=== PATIENT | male | born 1955 | race Caucasian/White ===

== ENCOUNTER 2016-09-18 10:30 | Inpatient (IN) ==
[2016-09-18] MEDS ORDERED: CeFAZolin Pre 2,000 MG/100 ML 2,000 MG/100 ML BAG IVPB ONE (10:42)
[2016-09-18] MEDS ORDERED: Albuterol 2.5 MG/3 ML NEBULIZER IH ONE (10:42)
[2016-09-18] MEDS ORDERED: Ringers Solution, Lactated 1,000 ML IVC SCH ×2 (10:45→16:03)
--- NOTE | 2016-09-18 10:45 | Anesthesia Evaluation PreOp ---
Date of Encounter: 09/18/16 Time of Encounter: 10:43 - Past History Planned Operation: PLIF L5-S! Cardiac History: Denies any Significant Hx Pulmonary History: Smoker (56 years), Asthma, COPD SEO CONSULTANT History: Other (chronic back pain) Other Medical History: GERD Anesthesia History: No Prior Anesthetic Complications, Past Anesthesia Alcohol Use: none Drug use: none Medications and Allergies Buspirone HCl [Buspar] 10 mg PO TID 06/28/16 [History] Tizanidine HCl [Zanaflex] 4 mg PO Q8H PRN 06/28/16 [History] Albuterol Sulfate [Ventolin Hfa] 2 puff IH Q4H PRN 06/30/16 [History] Beclomethasone Diprop 80mcg [QVAR 80 mcg] 1 puff IH BID 06/30/16 [History] Gabapentin 600 mg PO TID 06/30/16 [History] Ipratropium [ATROVENT Inhaler] 2 puff IH QID 06/30/16 [History] Loratadine [Claritin] 10 mg PO DAILY 06/30/16 [History] Ranitidine HCl [Zantac] 150 mg PO BID 06/30/16 [History] TraMADol [Ultram] 50 mg PO BID PRN 06/30/16 [History] Amoxicillin/Clavulanate [Augmentin] 875 mg PO BIDWM #20 tablet 07/02/16 [Rx] Allergies No Known Allergies Allergy (Verified 06/28/16 17:25) - Meds/Allergy Pre-op Review Medications Reviewed: Yes Allergies Reviewed: Yes Beta Blockers on Current Med List: No Anesthesia Results - Labs Laboratory Tests 09/06/16 09/06/16 09/06/16 13:50 13:50 13:50 WBC 9.3 Hgb 13.5 Hct 43.4 Plt Count 264 PT 10.2 INR 1.0 APTT 28.8 Sodium 137 Potassium 4.3 BUN 11 Creatinine 0.96 - Imaging EKG: report reviewed (03/30/2014 SR) Additional studies: 03/31/2014 Stress Impression: Perfusion imaging was negative for ischemia or infarct. There is a small sized, mild intenstiy, primarily fixed perfusion defect in the basal inferoseptal segment. I suspect this is due to artifact. Exercise ECG is negative for ischemia. No chest pain or arrhythmias during stress. The exercise capacity was average. Patient had no chest pain during stress. Normal hemodynamic response to exercise. Gated EF = 73%. Wall motion is normal. The left ventricle does not appear dilated. No evidence of transient ischemic dilatation. Anesthesia Exam Height: 5'9'' Weight: 162 lbs NPO (# of Hours): 8 Pain Scale: 8 Pain Scale Used: Numeric (1 - 10) - HEENT Pupil (Motor): EOMI Mallampati: III Teeth: Edentulous Denture Type: Upper: Complete, Lower: Complete Oral Opening: Greater than 3 - SEO CONSULTANT LOC: Oriented SEO CONSULTANT Motor: Normal RUE, Normal LUE, Normal RLE, Normal LLE, Normal Face SEO CONSULTANT Sensory: Normal: RUE, LUE, Face, Deficit: RLE, LLE - Cardiac Rhythm: Regular Murmur: Systolic - Pulmonary Breath Sounds: bilateral Clear Respiratory Effort: Symmetrical Anesthesia Assess/Plan ASA Score: 2 Modified Rishi Scale for Level of Consciousness: Cooperative, oriented, and tranquil Anesthetic Plan: General Monitoring Plan: Standard Monitors Recovery Plan: PACU
--- NOTE | 2016-09-18 11:05 | History & Physical Report ---
Date of Encounter: 09/18/16 Time of Encounter: 11:04 24 Hour HP Update - Instructions Instructions: If the History and Physical is less than 30 days old and was completed prior to A.M. admission and or procedure and has NOT been updated on calendar day of procedure please complete this update prior to performing procedure. - Update Patient reports changes in Medical Condition: No Changes in assessment/condition: No Changes in Medication: No Preop tests/diagnostics Reviewed: Yes Pre-Op MRSA Screen: Negative Surgery Remains Indicated: Yes Consent for Planned Operative Procedure(s) Verified: Yes - Pre-Operative Checklist Preoperative Checklist Indicated: No Prophylactic Antibiotic Ordered: Yes Home Medications Include Beta Afsaneh: No Beta Afsaneh Taken Today (Day of Surgery): No Beta Afsaneh Taken Yesterday (Day Prior to Surgery): No Is VTE Prophylaxis Indicated?: Yes
[2016-09-18] MEDS ORDERED: *HR* FentaNYL (PF) 100 MCG/2 ML VIAL ONE (11:24)
[2016-09-18] MEDS ORDERED: *HR* Midazolam HCl 2 MG/2 ML VIAL ONE (11:24)
[2016-09-18] MEDS ORDERED: *HR* Propofol 200 MG/20 ML VIAL IVP ONE (11:25)
[2016-09-18] MEDS ORDERED: *HR* Rocuronium Bromide 50 MG/5 ML VIAL ONE (11:26)
[2016-09-18] MEDS ORDERED: *HR* Succinylcholine 200 MG/10 ML VIAL IVP ONE (11:26)
[2016-09-18] MEDS ORDERED: Lidocaine -MPF 2% 2 ML VIAL ONE (11:26)
[2016-09-18] MEDS ORDERED: *HR* Remifentanil 1 MG VIAL IVP ONE ×2 (11:28)
[2016-09-18] MEDS ORDERED: Ondansetron 4 MG/2 ML VIAL ONE (13:43)
[2016-09-18] MEDS ORDERED: Dexamethasone 4 MG/ML VIAL ONE (13:43)
[2016-09-18] MEDS ORDERED: *HR* HYDROmorphone 2 MG/ML SYRINGE ONE (13:46)
[2016-09-18] MEDS ORDERED: Neostigmine Methylsulfate 3 MG/3 ML SYRINGE ONE (13:47)
[2016-09-18] MEDS ORDERED: *HR* Promethazine 25 MG/ML VIAL IVP PRN (13:53)
[2016-09-18] MEDS ORDERED: *HR* HYDROmorphone (PF) 1 MG/ML SYRINGE IVP PRN (13:53)
--- NOTE | 2016-09-18 14:39 | Orthopedic Operative Note ---
Date of procedure: 09/18/16 Pre-op diagnosis: Spondylolisthesis, lumbar stenosis Post-op diagnosis: same Operation/Findings: Posterior lumbar interbody fusion L5-S1: The patient successfully underwent general endotracheal anesthesia. The patient was given antibiotics prior to the start of the procedure. Compression boots and stockings were used for deep vein thrombosis prophylaxis. A Poe catheter was placed. Leads for neuro monitoring were placed on the upper and lower extremities. This included the cranium. The neuro monitoring personnel confirmed there were satisfactory readings prior to the start of the procedure. The patient was turned prone on the Edwar table. The back was prepped and draped in the usual sterile fashion. An incision was was marked and centered over the involved L5_s1 levels in the mid line. The incision was deepened through the lumbar fascia. Bovie cautery and Skaggs elevators were used to reflect the paraspinal musculature at the lateral extent of the L5 transverse processes of the involved levels. Jenise clamps were placed over the L5 spinous processes. An intraoperative lateral fluorograph was obtained. A conversation was held between the surgeon and radiologist and both confirmed we had the correct operative levels. We then placed pedicle screws in standard fashion with the aid of fluoroscopy and anatomic landmarks. Briefly a starter awl was used. A gearshift was subsequently used to enter the barge pilot hole via a transpedicular route into the vertebral body. The barge pilot hole was tapped with an undersized instrument, and subsequently four 6.5 x 40 mm pedicle screws were placed bilaterally at the indicated L5 and S1 levels. The screws were tested with the aid of the neurologic monitoring staff via pedicle screw stimulation. All reading suggested there was no significant cortical wall breech. The screws were also evaluated fluoro- graphically and appeared to be in satisfactory position. We then turned our attention to the decompression portion of the procedure. We removed the supraspinous and interspinous ligaments and subsequently the insertion of the ligamentum flavum on the undersurface of the proximal L5 lamina was dislodged with a curette. We then removed the ligamentum flavum as well as undercut the L5-S1 facets at this level to decompress the lateral recesses. We also performed a L5 laminectomy. After the decompression, which was over and above that which was required to place the interbody graft, the foramen and traversing roots at this level were found to be free and patent. We also took part of the medial facet in order to aid in the decompression. We then protected the neural elements including the thecal sac and traversing nerve root on the right with a dural retractor. We made an annulotomy into the L5-S1 disc space and then removed entire disc material using Pituitary instruments. We trialed various size grafts after the endplates were prepared for graft insertion. An 8 x 26 enter body graft fit well within the L5-S1 disc space. We obtained some bone from the right posterior superior iliac spine through us a separate incision and combined with this with the bone which we had saved from the laminectomy portion of the procedure. This autograft bone was first placed in the anterior portion of the L5-S1 disc space and additional bone was placed within the interbody graft spacer. We then placed the interbody graft spacer obliquely across the disc space towards the midline while protecting the neural elements with a root retractor. When the graft was found to be in satisfactory position the tig welder was removed. We then copiously irrigated the wound. We then decorticated the L5 transverse processes as well as the proximal portion of the sacrum and L5-S1 facet joints of the involved levels to aid in the posterolateral fusion. We placed autograft bone in the lateral gutters over these regions. We then placed rods within the screw heads of the involved L5 and S1 levels and first locked the distal screws and then subsequently locked the proximal screws so as to improve and reduce the spondylolisthesis previously seen. We then closed the wound in layers with 1 Vicryl for the fascia, 2-0 Vicryl. Subcutaneous tissue, and Dermabond was used for skin closure. Sterile dressings were placed over the wound. The patient was turned supine on a hospital bed and extubated. All sponge instruments and needle counts were correct at the end of the procedure. The patient tolerated the procedure well without complications. Anesthesia: GETA Surgeon: Shlomo Pop Jr Estimated blood loss (cc): 100 Condition: stable Disposition: PACU
[2016-09-18] MEDS ORDERED: *HR* HYDROmorphone (PF) 1 MG/ML SYRINGE ONE (14:58)
--- NOTE | 2016-09-18 15:26 | Anesthesia Evaluation Post Op ---
Date of Encounter: 09/18/16 Time of Encounter: 15:25 - Vital Signs Vital Signs: Last Vital Signs Temp 98.0 F 09/18/16 15:18 Pulse 87 09/18/16 15:18 Resp 16 09/18/16 15:18 BP 150/93 09/18/16 15:18 Pulse Ox 98 09/18/16 15:18 - Lungs Lungs: Clear Ascult./Percussion - Airway Airway: Non-obstructed - Cardiovascular Regular Rate - Mental Status Mental Status: Alert & Oriented, Answers Appropriately - Pain Pain Scale: 2 - Nausea Vomiting Nausea Vomiting: Not Present - Hydration Hydration: NPO - Discharge PostOp Status: Transfer Patient to floor
[2016-09-18] MEDS ORDERED: tiZANidine 4 MG TABLET PO PRN (16:03)
[2016-09-18] MEDS ORDERED: Ondansetron 4 MG/2 ML VIAL IVP PRN (16:03)
[2016-09-18] MEDS ORDERED: Naloxone 0.4 MG/ML INJ IVP PRN (16:03)
[2016-09-18] MEDS ORDERED: Sennosides 8.6 MG TABLET PO PRN (16:03)
[2016-09-18] MEDS ORDERED: *HR* Morphine 2 MG/ML SYRINGE IVP PRN (16:03)
[2016-09-18] MEDS: Ipratropium 1 PUFF INHALER IH SCH ×2 (17:24→21:11)
[2016-09-18] MEDS: ceFAZolin 2,000 MG in D5% in Water 100 ML IVPB SCH ×2 (17:44→22:58)
[2016-09-18] MEDS: *HR* OxyCODONE Immed Rel 5 MG TABLET PO PRN (17:47)
[2016-09-18] MEDS: Famotidine 20 MG TABLET PO SCH (19:58)
[2016-09-18] MEDS: Beclomethasone 80mcg MDI IH SCH (21:13)
[2016-09-18] MEDS: *HR* Morphine 2 MG/ML SYRINGE IVP PRN (21:34)
[2016-09-19] MEDS: *HR* OxyCODONE Immed Rel 5 MG TABLET PO PRN ×4 (01:28→21:13)
[2016-09-19] MEDS: *HR* Morphine 2 MG/ML SYRINGE IVP PRN ×2 (05:34→10:47)
[2016-09-19 06:03] LABS: Basophils % 0.3 %; Eosinophils % 0.1 %; Hematocrit 39.4 % (37.5-50.1); Hemoglobin 12.6 g/dL (12.9-16.9); Immature Granulocytes % 0.5 % (0-4); Lymphocytes # 2.4 K/mcL (0.6-4.6); Lymphocytes % 21.5 %; Mean Corpuscular Hemoglobin 28.8 pg (28.0-33.3); Mean Platelet Volume 9.2 fL (9.4-12.4); Monocytes # 1.2 K/mcL (0.0-1.3); Monocytes % 10.6 %; Neutrophils # 7.4 K/mcL (1.6-8.9); Platelet Count 208 K/mcL (140-400); Red Blood Count 4.38 M/mcL (4.19-5.50); Red Cell Distribution Width 14.2 % (11.5-14.5)
[2016-09-19 06:15] LABS: BUN/Creatinine Ratio 13 (6-26); Blood Urea Nitrogen 13 mg/dL (8-26); Calcium 9.2 mg/dL (8.6-10.8); Carbon Dioxide 26 mEq/L (19-29); Chloride 105 mEq/L (98-109); Glucose 105 mg/dL (70-99); Osmolality,Calculated 288 (280-300); Potassium 4.4 mEq/L (3.5-4.5); Sodium 139 mEq/L (136-145); eGFR For African Americans > 60 (> 60); eGFR For Non-African Americans > 60 (> 60)
[2016-09-19] MEDS: Nicotine 14 MG PATCH.TD24 TD SCH (07:41)
[2016-09-19] MEDS: Famotidine 20 MG TABLET PO SCH ×2 (07:42→21:13)
[2016-09-19] MEDS: Beclomethasone 80mcg MDI IH SCH ×2 (07:43→23:31)
[2016-09-19] MEDS: Ipratropium 1 PUFF INHALER IH SCH ×4 (07:43→23:32)
[2016-09-20] MEDS: *HR* OxyCODONE Immed Rel 5 MG TABLET PO PRN ×4 (02:01→16:56)
[2016-09-20] MEDS: Ipratropium 1 PUFF INHALER IH SCH ×4 (04:53→23:11)
[2016-09-20] MEDS: Famotidine 20 MG TABLET PO SCH ×2 (09:55→17:27)
[2016-09-20] MEDS: Nicotine 14 MG PATCH.TD24 TD SCH (09:56)
--- NOTE | 2016-09-20 10:44 | Spine Progress Note ---
Date of Encounter: 09/19/16 Time of Encounter: 14:00 Subjective Principal diagnosis: spondylolisthesis, lumbar stenosis Interval history: The patient is without complaints. No flatus yet. Afebrile vital signs are stable. Dressing is clean dry and intact. Neurovascularly intact with regard to bilateral lower extremities. Fires all upper and lower extremity motor groups. . Assessment :stable. Plan mobilize ,clears till flatus,continue analgesics, discharge planning. Objective Vital signs: Vital Signs Temp Pulse Resp BP Pulse Ox 09/20/16 07:18 98.8 F 82 18 127/72 93 L 09/20/16 04:00 98.4 F 78 18 129/68 94 L 09/20/16 00:00 99.7 F H 98 16 125/72 95 09/19/16 23:32 16 91 L 09/19/16 20:00 99.0 F 95 17 113/66 92 L 09/19/16 15:55 20 93 L 09/19/16 14:40 99.3 F 89 16 130/72 91 L 09/19/16 10:54 100.6 F H 93 16 121/62 92 L Intake and Output 09/19/16 09/20/16 09/20/16 23:59 07:59 15:59 Intake Total 200 / 200 600 / 600 Output Total 80 / 80 850 / 850 Balance 120 / 120 -250 / -250 Intake: Oral 200 / 200 600 / 600 Output: Urine 80 / 80 Straight Cath 850 / 850 Other: Meal Dinner Percent of Meal Consumed 25% - Labs CBC & BMP: 09/19/16 05:44 09/19/16 05:44 Labs: Abnormal lab results Hgb 12.6 g/dL (12.9-16.9) L 09/19/16 05:44 MPV 9.2 fL (9.4-12.4) L 09/19/16 05:44 Glucose 105 mg/dL (70-99) H 09/19/16 05:44 Consult Discharge Plan - Plan Referrals: Soledad Byers, PAC [Physician Welder Fitter [facility]] - 10/03/16 8:30 am Raleigh Lucio MD [Primary Care Provider] -
--- NOTE | 2016-09-20 10:45 | Spine Progress Note ---
Date of Encounter: 09/20/16 Time of Encounter: 10:44 Subjective Principal diagnosis: spondylolisthesis, lumbar stenosis Interval history: The patient is without complaints. Afebrile vital signs are stable. Incision is clean dry and intact. Neurovascularly intact with regard to bilateral lower extremities. Fires all upper and lower extremity motor groups. . Assessment : stable. Plan mobilize ,continue analgesics, discharge planning. Objective Vital signs: Vital Signs Temp Pulse Resp BP Pulse Ox 09/20/16 07:18 98.8 F 82 18 127/72 93 L 09/20/16 04:00 98.4 F 78 18 129/68 94 L 09/20/16 00:00 99.7 F H 98 16 125/72 95 09/19/16 23:32 16 91 L 09/19/16 20:00 99.0 F 95 17 113/66 92 L 09/19/16 15:55 20 93 L 09/19/16 14:40 99.3 F 89 16 130/72 91 L 09/19/16 10:54 100.6 F H 93 16 121/62 92 L Intake and Output 09/19/16 09/20/16 09/20/16 23:59 07:59 15:59 Intake Total 200 / 200 600 / 600 Output Total 80 / 80 850 / 850 Balance 120 / 120 -250 / -250 Intake: Oral 200 / 200 600 / 600 Output: Urine 80 / 80 Straight Cath 850 / 850 Other: Meal Dinner Percent of Meal Consumed 25% - Labs CBC & BMP: 09/19/16 05:44 09/19/16 05:44 Labs: Abnormal lab results Hgb 12.6 g/dL (12.9-16.9) L 09/19/16 05:44 MPV 9.2 fL (9.4-12.4) L 09/19/16 05:44 Glucose 105 mg/dL (70-99) H 09/19/16 05:44 Consult Discharge Plan - Plan Referrals: Soledad Byers PAC [Physician Hammerer Tab] - 10/03/16 8:30 am Raleigh Lucio MD [Primary Care Provider] -
[2016-09-20] MEDS: Beclomethasone 80mcg MDI IH SCH ×2 (11:19→23:11)
[2016-09-20] MEDS ORDERED: Mag Hydrox/Al Hydrox/Simeth 30 ML UDC PO PRN (17:26)
[2016-09-21] MEDS: *HR* OxyCODONE Immed Rel 5 MG TABLET PO PRN ×3 (02:03→15:46)
[2016-09-21] MEDS: Ipratropium 1 PUFF INHALER IH SCH ×3 (04:01→16:25)
[2016-09-21] MEDS: Nicotine 14 MG PATCH.TD24 TD SCH (09:15)
[2016-09-21] MEDS: Famotidine 20 MG TABLET PO SCH (09:18)
[2016-09-21] MEDS: Beclomethasone 80mcg MDI IH SCH (10:59)
[2016-09-21 15:52] VITALS: BP 101/60
--- NOTE | 2016-09-21 16:13 | Discharge Summary ---
Date of Encounter: 09/21/16 Time of Encounter: 16:10 - Discharge Diagnosis (1) Spondylolisthesis Priority: Primary Status: Chronic Qualifiers: Spinal region: lumbar Qualified Code(s): M43.16 - Spondylolisthesis, lumbar region - Discharge Medications Prescriptions: OxyCODONE Immed Rel [Roxicodone 5 MG] 5 mg PO Q4HR PRN #60 tablet PRN Reason: Severe Pain Home Medications: Buspirone HCl [Buspar] 10 mg PO TID 06/28/16 [History] Tizanidine HCl [Zanaflex] 4 mg PO Q8H PRN 06/28/16 [History] Albuterol Sulfate [Ventolin Hfa] 2 puff IH Q4H PRN 06/30/16 [History] Beclomethasone Diprop 80mcg [QVAR 80 mcg] 1 puff IH BID 06/30/16 [History] Gabapentin 600 mg PO TID 06/30/16 [History] Ipratropium [ATROVENT Inhaler] 2 puff IH QID 06/30/16 [History] Ranitidine HCl [Zantac] 150 mg PO BID 06/30/16 [History] TraMADol [Ultram] 50 mg PO BID PRN 06/30/16 [History] Nicotine Patch [Nicoderm] 14 mg TD DAILY 09/18/16 [History] OxyCODONE Immed Rel [Roxicodone 5 MG] 5 mg PO Q4HR PRN #60 tablet 09/21/16 [Rx] Allergies/Adverse Reactions: Allergies No Known Allergies Allergy (Verified 06/28/16 17:25) - Impressions ITS Impressions Lumbar Spine X-Ray 09/18/16 12:35 IMPRESSION: Expected postsurgical appearance of the lumbar spine D/ / Gonzalo Perez MD / Gonzalo Perez MD Interpreting Provider: Gonzalo Perez MD Lumbar Spine X-Ray 09/21/16 08:20 IMPRESSION: 1. Status post L5-S1 spinal fusion with minimal residual anterolisthesis of L5 on S1, now measuring 3 mm. 2. Mild degenerative disease throughout the remainder lumbar spine. D/ / Melodie Johnson MD / Melodie Johnson MD Interpreting Provider: Melodie Johnson MD Date of admission: 09/18/16 16:15 Primary care physician: Raleigh Lucio MD Consults: 09/18/16 16:03 Consult to Occupational Therapy [CONS] Routine Comment: Evaluate, develop and implement POC Consult to Physical Therapy [CONS] Routine Comment: Evaluate, develop and implement POC Consult to Spine Navigator [CONS] [CONS] Routine 09/21/16 15:36 Consult to Commercial Specialist [CONS] Routine Reason for SW Consult: D/C - Patient Status Disposition: Home Health Service Condition: Good Functional capacity at discharge: uses cane/walker Overall status at discharge: patient is progressing back to baseline - Discharge Instructions Follow Up With: Soledad Byers PAC [Physician Medical Staff Director] - 10/03/16 8:30 am Raleigh Lucio MD [Primary Care Provider] - Additional Instructions: Discharge Instructions: Lumbar Please call [facility] ([phone]), your Primary Care Physician, or report to the ER if you have any of the following symptoms: Fever greater that 101.5, increased pain/redness/drainage/odor for your incision site or any other concerning symptoms. ACTIVITY * May Shower * No Tub Baths * No lifting greater than 10 pounds * No Smoking * No Swimming * No off Ground Activities (Running, Climbing, Ladders, Horseback Riding) * No Driving * Wear Back Brace when up walking if lumbar fusion done MEDICATIONS: Upon discharge resume your home medications. Take all the medications as prescribed. Take a stool softener if taking narcotic pain medications. Stool softeners are only effective if you drink enough fluids. Drink 6-8 glass of water or fluids a day, unless this is not allowed for another health problem. Despite using stool softeners, if you haven't had a bowel movement in 3 days, please switch to a gentle laxative. Gentle laxatives are sold over the counter. You should have a bowel movement within 24 hours, if not call the office. You will be discharged from the hospital with a prescription for pain medication. You are encouraged to decrease the use of narcotic pain medication as tolerated. Should you require a refill, please call the office. It is best to call 48-72 hours in advance of needing a prescription refill so you don't run out of medication. WOUND CARE: Remove Dressing Tomorrow. Leave incision open to air. Pat dry when you get out of the shower. FOLLOW-UP: Please follow up with your surgeon in the orthopedic clinic in 2 weeks from the day of surgery. References: [employer] (www.apta.org) - Diet and Activity Activity: as per physical therapy Diet: advance to your usual diet - Hospital Course Hospital course: Mr. Mcduffie is a 61 year old male The patient had an uneventful postoperative course. Progressed from intravenous analgesic needs to oral analgesic needs only. Remained neurovascularly intact and mobilized satisfactorily. All intraoperative and/or postoperative radiographic studies were satisfactory. Patient is discharged with plan for rehabilitation and follow-up in 2 weeks post discharge on analgesic medication and patient's home medications. - Time Spent with Patient Total time spent providing and/or coordinating discharge services: - VTE Documentation of Mechanical Device: Intermittent pneumatic compression device
== END 2016-09-21 18:32 | disposition home health service (06) | DRG 304 ==
LOC: SAMDAY 10:30 → 3NENU 16:15
PROVIDERS: ADMIT Orthopaedic Surgery Orthopaedic Surgery of the Spine; ATTEND Orthopaedic Surgery Orthopaedic Surgery of the Spine